=== PATIENT | male | born 1935 | race Caucasian/White ===

== ENCOUNTER 2017-02-09 10:15 | Day surgery (SDC) | payer MEDICARE, BC ==
[2017-02-08 18:06] VITALS: BMI 18.3
[2017-02-09] MEDS ORDERED: Lidocaine 1% PF 5 ML VIAL ONE (12:16)
[2017-02-09] MEDS ORDERED: Propofol 200 MG/20 ML VIAL ONE (12:16)
--- NOTE | 2017-02-09 13:19 | OP ---
PREOPERATIVE DIAGNOSES: Dysphagia and weight loss. DESCRIPTION OF THE PROCEDURE: After informed consent was obtained, the patient was placed in the le ft lateral decubitus position. Anesthesia administered per the Anesthesia Department. Forward view ing endoscope was inserted into the esophagus under direct visualization with ease and passed to the second portion of the duodenum with ease. The second portion of the duodenum and duodenal bulb wer e normal. The pylorus, antrum, body, fundus, and cardia were normal. Retroflexion in the stomach w as normal. 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 A 54-[place] Sapp dilator was passed with s ome mild post-dilatation bleeding and there is mild stricture noted at the distal esophagus. Biopsi es were taken of the Springer's after dilatation. ASSESSMENT: 1. Esophageal stricture - status post dilatation. 2. Irregular Z-line - status post biopsy. 3. Otherwise, normal esophagogastroduodenoscopy. RECOMMENDATIONS: 1. Begin a trial of proton pump inhibitor. 2. May consider modified barium swallow if the dysphagia continues.
== END 2017-02-09 11:13 | disposition home or self-care (01) ==
LOC: SDC 10:15
PROVIDERS: ATTEND Internal Medicine Gastroenterology
PROC: 0D748ZZ Dilation of Esophagogastric Junction, Via Natural or Artificial Opening Endoscopic (ICD-10-PCS; principal; 2017-02-09)
DX: K20.9 Esophagitis, unspecified (principal); R63.4 Abnormal weight loss; H40.9 Unspecified glaucoma; Z90.79 Acquired absence of other genital organ(s); Z98.890 Other specified postprocedural states; Z87.891 Personal history of nicotine dependence
CPT/HCPCS: 88305; 88312; 88313; J2001; J2704